=== PATIENT | female | born 1940 | race Caucasian/White ===

== ENCOUNTER 2019-04-21 09:48 | Outpatient (CLI) | payer MEDICARE ==
[~2019-04-21 09:48] MED LIST: Iopamidol 370 76% 100 ML VIAL ONE
--- NOTE | 2019-04-21 13:01 | CT ---
CT Chest W Con History: Cough Comparison: None. Findings: There is a faint area of consolidation probably groundglass within the posterior segment ri ght upper lobe. Posterior segment right upper lobe low-grade tubular bronchiectasis. No pneumothorax. No effusion. No suspicious pulmonary nodule. There is some faint likely resolving consolidation within the right middle lobe. Thyroid is unremarkable. No mediastinal adenopathy. Bilateral intracapsular breast implant rupture. Multiple calcified granulomas of the spleen and liver. Mild chronic inflammatory process the proximal small bowel mesentery. No thoracic spine compression deformity. No displaced rib fracture. Impression: Faint opacities in the posterior segment right upper lobe as well as right middle lobe li kim resolving pneumonia..
== END 2019-04-21 09:49 | disposition home or self-care (01) ==
LOC: SCSCT 09:48 → MERGE 10:00
PROVIDERS: ATTEND Allergy & Immunology
DX: J06.9 Acute upper respiratory infection, unspecified (principal); R91.8 Other nonspecific abnormal finding of lung field
CPT/HCPCS: 71260; 82565; Q9967

== ENCOUNTER 2019-05-04 13:30 | Outpatient (CLI) | payer MEDICARE ==
--- NOTE | 2019-05-04 14:22 | BD ---
DEXA BONE DENSITOMETRY: (Dual energy x-ray absorptiometry) DATE: 05/04/2019 HISTORY: 78-year old white female for age-related, post-menopausal, osteoporosis screening. weight: 180 lbs height: 62 in. age of menopause: 35 COMPARISON: None available. FINDINGS: The bone mineral density (BMD) is given in grams per square centimeter (g/cm2): LUMBAR SPINE: BMD (g/cm^2) T score Z score L1: 0.955 -0.3 2.0 L2: 0.893 -1.2 1.3 L3: 0.788 -2.7 0.0 L4: 0.975 -0.8 2.0 Total: 0.907 -1.3 1.3 HIP: BMD (g/cm^2) T score Z score Femoral neck: 0.608 -2.2 0.1 Total: 0.750 -1.6 0.4 FRAX WHO fracture risk assessment tool: 10 year fracture risk* Major osteoporotic fracture: 19 % Hip fracture: 6.1 % Reported risk factors: [place] (), neck BMD = 0.608 (g/cm^2), BMI = 32.9, and rheumatoid arthritis. *Fracture probability is calculated for an untreated patient. Fracture probability may be lower if th e patient has received treatment. IMPRESSION: 1.) The mean bone mineral density of the lumbar spine is osteopenic. Fracture risk is increased. 2) The bone mineral density of the femoral neck is osteopenic. Fracture risk is increased.
== END 2019-05-04 13:31 | disposition home or self-care (01) ==
LOC: BICMAMMO 13:30
PROVIDERS: ATTEND Obstetrics & Gynecology
DX: Z13.820 Encounter for screening for osteoporosis (principal); M85.89 Other specified disorders of bone density and structure, multiple sites
CPT/HCPCS: 77080